=== PATIENT | male | born 1995 ===

== ENCOUNTER → 2024-12-05 | Outpatient (REF) | payer BC ==
[2024-12-05 10:57] LABS: SEMEN APPEARANCE OPAQUE (OPAQUE); SEMEN VISCOSITY LIQUID (LIQUID); SEMEN VOLUME 5.7 ml (2.0-5.0); SPERM CONCENTRATION 59.7 M/ml (>=15.0); WBC CONCENTRATION <=1 M/ml (<=1 M/ml)
[2024-12-05 10:58] LABS: TOTAL PROGRESSIVE SPERM 191.2 M/Ejac.
== END ==
LOC: M LAB REF 10:51
PROVIDERS: ATTEND Nurse Practitioner Family
DX: Z31.81 Encounter for male factor infertility in female patient (principal)